=== PATIENT | female | born 1995 | race Caucasian/White ===

== ENCOUNTER 2019-04-01 05:01 | Emergency (ER) | payer OTHER, SELFPAY ==
[2019-04-01] VITALS (7 sets, daily range): BP systolic 89–114; BP diastolic 53–83; PULSE 78–126; RESP 16–27; TEMP 36.6; O2SAT 98–100
--- NOTE | ~2019-04-01 | US_ITS ---
EXAMINATION: US pelvic complete w TV DATE: 04/01/2019 07:51 INDICATION: Abdominal pain, nausea and vomiting TECHNIQUE: Multiple transabdominal and endovaginal sonographic images of the pelvis were obtained. COMPARISON: None. FINDINGS: The uterus measures 6.9 x 4.6 x 4.5 cm. The endometrial complex measures 7 mm in thickness. The righ t ovary measures 3.0 x 1.4 x 1.8 cm. The left ovary measures 3.1 x 2.2 x 3.0 cm. Anechoic 1.4 x 1.2 x 1.0 cm likely corpus luteum cyst in the left ovary. Vascular flow identified at both ovaries on colo r Doppler. Small amount of free fluid in the pelvis as well as along side a fluid-filled loops of per istalsing bowel in the right adnexal region. IMPRESSION: 1. Nonspecific small amount of likely physiologic free fluid in the pelvis and likely corpus luteum c yst in the left ovary. Otherwise unremarkable pelvic ultrasound. Reviewed, dictated and finalized at location A. [employer] IMPRESSION: 1. Nonspecific small amount of likely physiologic free fluid in the pelvis and likely corpus luteum cyst in the left ovary. Otherwise unremarkable pelvic ultr asound.
--- NOTE | ~2019-04-01 | CT_ITS ---
EXAMINATION: CT abdomen pelvis w con EXAM DATE: 04/01/2019 08:56 INDICATION: Abdominal pain, nausea and vomiting. Recent D and C, miscarriage at 10 weeks. TECHNIQUE: Spiral CT of the abdomen and pelvis was performed following intravenous injection of 100 m L Omnipaque 350. Axial, coronal and sagittal images were reviewed. The dose-length product (DLP) fo r this examination was 190.28 mGy-cm. The exposure was tailored according to patient size (auto mA e xposure control), and iterative reconstruction (ASIR) was used as additional dose reduction technique . There is no prior study for comparison. FINDINGS: The liver, spleen, adrenal glands and pancreas are unremarkable. Gallbladder is unremarkab le. No biliary obstruction. Portal and splenic veins are patent. Kidneys enhance symmetrically. T here is no hydronephrosis. The uterus is retroverted and morphologically normal. The bladder is u nremarkable. There is no retroperitoneal or pelvic lymphadenopathy. Small free pelvic fluid likely p hysiologic. The appendix is normal. The stomach and small bowel are unremarkable. There is colonic fluid, corre late for diarrhea. No free intraperitoneal gas. The heart is normal in size. There are no perica rdial or pleural effusions. The lung bases are unremarkable. The bones are unremarkable. IMPRESSION: 1. Colonic fluid, correlate for diarrhea. Reviewed, dictated and finalized at location B. [employer]
--- NOTE | 2019-04-01 05:29 | ED.ABDPAIN ---
HPI - Abdominal Pain General Chief Complaint: Abdominal Pain <Mandy Ponce MD - Last Filed: 04/01/19 06:34> Stated Complaint: abd pain n/v <Mandy Ponce MD - Last Filed: 04/01/19 06:34> Time Seen by Provider: 04/01/19 05:25 <Mandy Ponce MD - Last Filed: 04/01/19 06:34> History of Present Illness HPI narrative: 24 yo female who presents with c/o sudden onset nausea, vomiting and mid abdominal pain. Patient states her symptoms started at midnight. She reports mid abdominal pain that radiates to the right side. She has had multiple episodes of vomiting and diarrhea. She denies similar symptoms in the past. She denies fever or chills. She reports history of kidney stone but this is different. <Mandy Ponce MD - Last Filed: 04/01/19 06:34> Related Data Home Medications: Home Medications Medication Instructions Recorded Confirmed biotin 1 mg PO DAILY 04/01/19 cholecalciferol (vitamin D3) 4,000 unit PO DAILY 04/01/19 [Vitamin D3] folic acid 1 mg PO DAILY 04/01/19 mecobalamin (vitamin B12) 1,000 mcg SUBLINGUAL DAILY 04/01/19 norethindrone ac-eth estradiol 1 tablet PO DAILY 04/01/19 [Microgestin 1.5/30 (21)] <Mandy Ponce MD - Last Filed: 04/01/19 06:34> Allergies/Adverse Reactions: Allergies Allergy/AdvReac Type Severity Reaction Status Date / Time No Known Drug Allergies Allergy Unknown Other Verified 04/01/19 05:55 <Mandy Ponce MD - Last Filed: 04/01/19 06:34> Review of Systems Review of Systems: All systems reviewed & are unremarkable except as noted in HPI and below <Mandy Ponce MD - Last Filed: 04/01/19 06:34> Constitutional: Constitutional: Denies chills and Denies fever(s) <Mandy Ponce MD - Last Filed: 04/01/19 06:34> ENT: Denies sore throat <Mandy Ponce MD - Last Filed: 04/01/19 06:34> Cardiovascular: Cardiovascular: Denies chest pain and Reports rapid heart rate <Mandy Ponce MD - Last Filed: 04/01/19 06:34> Gastrointestinal: Gastrointestinal: Reports abdominal pain, Reports diarrhea, Reports nausea and Reports vomiting <Mandy Ponce MD - Last Filed: 04/01/19 06:34> Genitourinary: Genitourinary: Denies hematuria, Denies dysuria and Denies flank pain <Mandy Ponce MD - Last Filed: 04/01/19 06:34> Musculoskeletal: Musculoskeletal: Denies back pain <Mandy Ponce MD - Last Filed: 04/01/19 06:34> [facility] Past Medical History Medical History: Medical History (Updated 04/01/19 @ 10:35 by Chip Dhillon DO) Kidney stone <Mandy Ponce MD - Last Filed: 04/01/19 06:34> Surgical History Surgical History: Surgical History (Updated 04/01/19 @ 06:27 by Mandy Ponce MD) S/P dilation and curettage <Mandy Ponce MD - Last Filed: 04/01/19 06:34> Social History Social History: Social History Gender identity (if verbalized by the patient): Female <Mandy Ponce MD - Last Filed: 04/01/19 06:34> Exam Narrative: Exam Narrative: GENERAL: thin and in no acute distress. HEAD: Normocephalic, atraumatic EYES: PERRLA and EOMI, conjunctiva clear without discharge THROAT:Mucous membranes moist, Oropharynx normal without erythema, exudate, peritonsillar swelling or fluctuance NECK: Supple, without lymphadenopathy or mass RESPIRATORY: No respiratory distress, Airway patent, Respirations non-labored, Clear to auscultation without rales, rhonchi or wheeze HEART: tachycardic , regular rhythm. No murmur heard. Normal peripheral pulses. ABDOMEN: Soft, Diffuse with worse on RLQ, nondistended, normal active bowel sounds. No masses. No rebound or guarding, No organomegaly. EXTREMITIES: No edema, normal strength with full range of motion. SKIN: Warm, dry, normal color without rash NEURO: Alert and oriented x3. CN 2-12 grossly intact. No focal deficits. PSYCH: Normal mood and affect. <Mandy Ponce MD - Last Filed: 04/01/19 06:34> Const: G
[2019-04-01] MEDS: LACTATED RINGERS 1,000 ML 999 ML IV CONT ×2 (05:40→10:03)
--- NOTE | 2019-04-01 05:42 | PC.NURSE ---
pt had d&c February 11, 2019.
[2019-04-01 05:49] LABS: Basophils Percent Auto 0.3 % (0.2-1.2); Eosinophils Percent Auto 0.1 % (0-4.4); Hematocrit 43.8 % (37.0-47.0); Hemoglobin 14.4 g/dL (12.0-15.0); Immature Granulocyte Absolute 0.05 K/mm3 (0.00-0.031); Immature Granulocyte Percent A 0.3 % (0-0.5); Lymphocytes Absolute Auto 0.61 K/mm3 (0.9-3.2); Lymphocytes Percent Auto 3.9 % (18.3-44.2); Mean Corpuscular HGB Conc 32.9 g/dl (32-36); Mean Corpuscular Hemoglobin 31.4 pg (26-34); Mean Corpuscular Volume 95.6 fl (80-100); Mean Platelet Volume 10.5 fl (7.4-10.4); Monocytes Percent Auto 6.2 % (2.6-8.5); Neutrophils Absolute Auto 13.9 K/mm3 (1.3-6.7); Neutrophils Percent Auto 89.2 % (45.5-73.1); Platelet Count Result 257 k/mm3 (150-375); Red Blood Count 4.58 M/mm3 (4.2-5.4); Red Cell Distribution Width 12.3 % (11.5-14.5); White Blood Count 15.6 K/mm3 (4.5-10.0)
[2019-04-01 05:57] LABS: Add Urine Microscopic? YES; Appearance Urine Cloudy (Clear); Bacteria Urine Trace /hpf; Bilirubin Urine Negative (Negative); Blood Urine Negative (Negative); Color Urine Amber (Yellow); Glucose Urine UA Negative (Negative); Ketones Urine 2+ mg/dL (Negative); Leukocyte Esterase Ur Trace LEU/UL (Negative); Mucus Urine Heavy /lpf; Nitrate Urine Negative (Negative); Protein Urine 1+ mg/dL (Negative); Specific Grav Ur 1.028 (1.001-1.035); Squamous Epithelial Cell Urine Many /hpf (Few); Urobilinogen Urine Negative mg/dL (<2.0)
[2019-04-01 06:09] LABS: Alanine Aminotransferase 13 U/L (4-35); Alkaline Phosphatase 46 U/L (38-126); Aspartate Amino Transferase 25 U/L (14-36); Bilirubin,Total 0.9 mg/dL (0.2-1.3); Blood Urea Nitrogen 13 mg/dL (7-17); Calcium 9.3 mg/dL (8.4-10.2); Carbon Dioxide 21 mmol/L (22-30); Chloride 100 mmol/L (98-107); Estimated CRCL calculation 85 ml/min; Estimated Glomerular Filt Rate > 60; Glucose 109 mg/dL (65-105); Lipase 72 U/L (23-300); Potassium 3.8 mmol/L (3.4-5.0); Sodium 138 mmol/L (137-145)
[2019-04-01 06:10] LABS: Lactic Acid Reflex 1.1 mmol/L (0.7-2.1)
[2019-04-01 06:25] LABS: Beta HCG Quantitative 5.82 mIU/ML
[2019-04-01] MEDS: PROMETHAZINE HCL 25 MG/ML AMPUL 12.5 MG IV PUSH (06:51)
--- NOTE | 2019-04-01 07:22 | PC.NURSE ---
Assumed pt care after bedside report, pt refusing Morphine at this time. VSS. Warm blanket provided.
--- NOTE | 2019-04-01 07:44 | PC.NURSE ---
Pt has returned from Ultrasound at this time.
--- NOTE | 2019-04-01 08:44 | PC.NURSE ---
Pt taken to CT at this time per stretcher.
[2019-04-01] MEDS: CEPHALEXIN 500 MG CAPSULE PO (10:53)
== END 2019-04-01 10:54 | disposition home or self-care (01) ==
PROVIDERS: General Practice; Emergency Provider Emergency Medicine
DX: N39.0 Urinary tract infection, site not specified (principal); R10.9 Unspecified abdominal pain; Z87.442 Personal history of urinary calculi
CPT/HCPCS: 36415; 74177; 76830; 76856; 80053; 81001; 81025; 83605; 83690; 84702; 85025; 96361; 96374; 96375; 99284; A9270; J0131; J2550; J7120; Q9967